=== PATIENT | male | born 1935 | race Caucasian/White ===

== ENCOUNTER → 2022-04-02 14:39 | Outpatient (BNVA) | payer SELFPAY | PROVIDERS: Visit Provider Family Medicine | DX: T83.511S Infection and inflammatory reaction due to indwelling urethral catheter, sequela (principal); Y83.8 Other surgical procedures as the cause of abnormal reaction of the patient, or of later complication, without mention of misadventure at the time of the procedure | CPT/HCPCS: 81000; 81003; 87077; 87086; 87184 ==